=== PATIENT | female | born 1985 | race Caucasian/White ===

== ENCOUNTER → 2016-05-24 | Outpatient (CLI) | payer BC ==
[~2016-05-24] MED LIST: PRENTAB26 PO
[2016-05-24 11:13] LABS: HEMATOCRIT 34.3 % (37-47)
[2016-05-24 13:21] LABS: GTGD 50 Grams
== END | disposition home or self-care (01) ==
LOC: C.LAB1850 09:07
PROVIDERS: ATTEND Obstetrics & Gynecology
DX: O09.899 Supervision of other high risk pregnancies, unspecified trimester (principal)

== ENCOUNTER → 2016-05-24 | Outpatient (CLI) | payer BC ==
[2016-05-24 12:23] LABS: URINE APPEARANCE CLEAR (CLEAR); URINE BILIRUBIN NEG (NEG); URINE COLOR YELLOW; URINE EPITHELIAL CELL AUTO >30 /lpf (0-5); URINE NITRITE NEG (NEG); URINE SPECIFIC GRAVITY 1.021 (1.000-1.030); UROBILINOGEN NEG (NEG)
[2016-05-24 12:28] LABS: MANUAL MICROSCOPIC REQUIRED? NO; REVIEW REQ? YES
== END | disposition home or self-care (01) ==
LOC: C.LABSPEC 11:34
PROVIDERS: ATTEND Obstetrics & Gynecology
DX: Z34.03 Encounter for supervision of normal first pregnancy, third trimester (principal)

== ENCOUNTER → 2016-07-19 | Outpatient (CLI) | payer BC | END | disposition home or self-care (01) | LOC: C.LABSPEC 18:01 | PROVIDERS: ATTEND Obstetrics & Gynecology | DX: Z34.03 Encounter for supervision of normal first pregnancy, third trimester (principal) ==

== ENCOUNTER 2016-08-10 17:06 | Inpatient (IN) | payer BC ==
[~2016-08-10] VITALS: Ht 172.7 cm; Wt 75.0 kg
[2016-08-10] MEDS ORDERED: LACTATED RINGER'S 1000ML 1,000 ML IV PRN (18:23)
[2016-08-10] MEDS ORDERED: LACTATED RINGER'S 1000ML 1,000 ML IV SCH (18:23)
[2016-08-10] MEDS ORDERED: MISOPROSTOLTAB 50 MCG TAB PO ONE (18:30)
[2016-08-10 18:49] LABS: HEMATOCRIT 38.6 % (37-47); MEAN CELL VOLUME 96.7 fL (80-100); MEAN CORPUSCULAR HEMOGLOBIN 33.3 pg (25-34); MEAN CORPUSCULAR HGB CONC 34.5 g/dl (32-36); MEAN PLATELET VOLUME 10.9 fL (7.4-10.4); PLATELET COUNT 195 K/uL (130-400); RED BLOOD COUNT 3.99 M/uL (4.2-5.4); WHITE BLOOD COUNT 15.92 K/uL (4.8-10.8)
[2016-08-10] MEDS ORDERED: PRENTAB26 PO (19:03)
[2016-08-10 19:04] VITALS: BMI 25.1
[2016-08-10 21:09] VITALS: Ht 172.7 cm; Wt 75.0 kg
[2016-08-10] MEDS ORDERED: BUTORPHANOL TARTRATE 1 MG/ML VIAL IV ONE (23:15)
[2016-08-11] MEDS: BUPIVACAINE 0.25% 30 ML VIAL ONE ×2 (00:43→01:29)
[2016-08-11] MEDS ORDERED: EpHEDrine SULFATE INJ 50 MG/ML AMP ONE (00:43)
[2016-08-11] MEDS ORDERED: FENTANYL CITRATE INJ 50 MCG/1 ML 2 ML VIAL ONE (00:43)
[2016-08-11] MEDS ORDERED: FENTANYL 2MCG/ML ROPIV 1.25MG/ML 100ML BAG EPI ONE (00:44)
[2016-08-11] MEDS ORDERED: LACTATED RINGER'S 1000ML 500 ML IV PRN (01:47)
[2016-08-11] MEDS ORDERED: NALOXONE HCL INJ 1 MG in SODIUM CHLORIDE 0.9% 1000ML 1,000 ML IV PRN (01:47)
[2016-08-11] MEDS ORDERED: NALBUPHINE HCL INJ 10 MG/ML AMP IV PRN (02:00)
[2016-08-11] MEDS ORDERED: NALOXONE HCL INJ 0.4 MG/1 ML VIAL/CARP IV PRN (02:00)
[2016-08-11] MEDS ORDERED: DiphenhydrAMINE HCL 50 MG/ML VIAL IV PRN (02:00)
[2016-08-11] MEDS ORDERED: FENTANYL 2MCG/ML ROPIV 1.25MG/ML 100ML BAG EPI PRN (02:00)
[2016-08-11] MEDS ORDERED: EpHEDrine SULFATE INJ 50 MG/ML AMP IV PRN (02:00)
[2016-08-11] MEDS ORDERED: OXYTOCIN 30 UNITS/500ML NSS IV ONE (04:37)
[2016-08-11] MEDS ORDERED: HYDROCORTISONE ACETATE 25 MG SUPP PR PRN (05:30)
[2016-08-11] MEDS ORDERED: OXYCODONE/ACETAMINOPHEN 5-325 TAB PO PRN (05:30)
[2016-08-11] MEDS ORDERED: OXYTOCIN 30 UNITS/500ML NSS IV PRN (05:30)
[2016-08-11] MEDS ORDERED: SUPERCREAM 0.870 % 15GM JAR EXT PRN (05:30)
[2016-08-11] MEDS ORDERED: LANOLIN OINT EXT PRN ×2 (05:30)
[2016-08-11] MEDS ORDERED: ACETAMINOPHEN/CODEINE 300/30MG TAB PO PRN ×2 (05:30)
[2016-08-11] MEDS ORDERED: ACETAMINOPHEN 325 MG TAB PO PRN (05:30)
[2016-08-11] MEDS ORDERED: BENZOCAINE 20% AER SPR 82.5 GM CAN EXT PRN (05:30)
--- NOTE | 2016-08-11 07:10 | DELIVERY SUMMARY ---
DATE OF OPERATION: 08/11/2016 PREOPERATIVE DIAGNOSES: 1. Intrauterine at 39 and 3/7 weeks. 2. Premature rupture of membranes prior to labor. POSTOPERATIVE DIAGNOSES: Same with terminal bradycardia. PROCEDURES: 1. p.o. Cytotec. 2. Epidural anesthesia. 3. Vacuum assisted vaginal delivery over midline episiotomy. 4. Partial third-degree laceration with repair. SURGEON: Dr. Dietz. ANESTHESIA: Epidural. ESTIMATED BLOOD LOSS: 400 mL. DESCRIPTION OF PROCEDURE: The patient presented to labor and delivery grossly ruptured at 39 and 3/7 weeks. Her cervix was then favorable 175, -2. She was given 1 dose of p.o. Cytotec and started to get into a really good contraction pattern. Four hours later she was 390 and -2. She progressed spontaneously and required an epidural for anesthesia and then became complete, complete and +1 station. She labored down for an hour and then began pushing. Within the first 4 pushes there were deep variables with pushing to the 70s that did return. The patient was an excellent pusher and then was able to push the baby down to +4 station. At that point the baby was deceling with pushing to the 70s to 80s with much slower return to the baseline of 120s. The patient was pushing very well, but I advised an outlet vacuum. I advised the patient to the risks and benefits of the procedure verbally and verbal consent was obtained. The vacuum was placed at the end of 1 set of pushing contractions and I had a pop-off. Over the next contraction, vacuum was applied. It was never greater than 50 cm of water pressure and with one push the head was delivered in GRICELDA position. The water had previously been drained prior to the procedure prior to pushing. The vacuum was disengaged and nuchal cord x1 was reduced. The nose and mouth were bulb suctioned and then the anterior shoulder was easily delivered with the rest of the body. There was immediate cry and the baby was vigorous. The nose and mouth were again bulb suctioned. The was placed on the maternal abdomen, for drying and attention and the cord was clamped and cut. Cord blood and segment were obtained. Placenta was delivered spontaneously intact with a 3-vessel cord. A partial third degree laceration was identified, the vast majority of the rectal sphincter was intact, but 2 reinforcing sutures were placed on the anterior and superior edge of the rectal sphincter. A rectal exam was performed. The patient was able to drop the rectal sphincter to show that it was now very approximated. The resultant second-degree perineal laceration was then repaired with 3-0 Vicryl in a normal standard fashion. Hemostasis was obtained with dilute Pitocin and fundal massage. Rectal exam was performed at the end of the procedure, no stitches were noted. Apgars were 8 and 10. Mother and baby doing well at the end of the delivery. I attest to the content of the Intraoperative Record and any orders documented therein. Any exceptio ns are noted below.
--- NOTE | 2016-08-11 07:21 | Anesthesia Procedure Note ---
Anesthesia Epidural Removal Nt Date & Time Aug 11, 2016 at 07:21 Vital Signs Pain Intensity: 0.0 Notes Mental Status: alert / awake / arousable, participated in evaluation Nausea / Vomiting: adequately controlled Pain: adequately controlled Airway Patency, RR, SpO2: stable & adequate BP & HR: stable & adequate Hydration State: stable & adequate Neuraxial Anesthesia: was administered Anesthetic Complications: no major complications apparent, pt satisfied with anesthetic care Epidural: removed without complications, with tip intact
[2016-08-11 08:50] VITALS: BP 120/75; PULSE 96; TEMP 37.2
[2016-08-11] MEDS: IBUPROFEN 600 MG TAB PO PRN ×2 (09:15→16:29)
[2016-08-11] MEDS: DOCUSATE SODIUM 100 MG CAP PO SCH ×2 (09:20→20:31)
[2016-08-11] MEDS: PRENATAL VITAMIN TAB PO SCH (09:20)
[2016-08-11 12:05] VITALS: BP 134/91; PULSE 76; TEMP 36.6
[2016-08-11 16:00] VITALS: BP 126/81; PULSE 70; TEMP 36.7
[2016-08-11 20:30] VITALS: BP 131/79; PULSE 79; TEMP 36.8; O2SAT 97
[2016-08-11 23:30] VITALS: BP 117/70; PULSE 76; TEMP 36.9; O2SAT 96
[2016-08-12 04:20] VITALS: BP 118/78; PULSE 71; TEMP 36.8; O2SAT 97
[2016-08-12] MEDS: IBUPROFEN 600 MG TAB PO PRN ×2 (04:28→14:31)
--- NOTE | 2016-08-12 06:59 | Discharge Instructions ---
Discharge Instructions Date of Service Aug 12, 2016. Admission Reason for Admission: Check Ruptured Membranes Discharge Discharge Diagnosis / Problem: s/p vaginal delivery Discharge Goals Goal(s): Routine recovery after delivery Medications Continue Dispensed Medications: supercream, dermaplast, tucks, lansinoh Activity Recommendations Activity Limitations: as noted below . Instructions / Follow-Up Instructions / Follow-Up ACTIVITY RECOMMENDATIONS: * Gradual return to full activity over the next 2-3 weeks. * No lifting - nothing heavier than baby over the next 2-3 weeks. * Do not engage in vigorous exercise, sexual activity or sports until cleared by your physician. * Do not drive or operate any motorized equipment until cleared by your physician. * You may shower/bathe daily. MEDICATIONS: For discomfort or pain, you may use Acetaminophen (Tylenol), Ibuprofen (Advil), or Naproxen (Aleve) following the package directions. For constipation you may use Colace following the package directions. BREAST CARE: If you are not breast feeding: * Wear a supportive bra 24 hours a day for one to two weeks. * Avoid stimulating your breasts and nipples as much as possible during the first few weeks after delivery. * When taking a shower, have the warm water hit your back, not breasts. * When your breasts feel full, apply ice packs. Usually three to four times a day helps ease the discomfort. * Take a mild pain medication (Tylenol / Motrin) when you are uncomfortable. If breast feeding: * Use breast milk to lubricate nipples. Lansinoh cream may be used for sore nipples. You do not need to remove cream prior to breast feeding. If using a different brand of cream, check the label for directions regarding removal of cream prior to nursing. * Wear a supportive bra. * If having problems with breasts or breast feeding, call a data management consultant or your health care provider. EPISIOTOMY CARE: After delivery, if you have an episiotomy (stitches), the following steps will ease discomfort and aid healing. * For the first 24 hours after delivery, place ice packs next to your episiotomy to help reduce swelling. * After the first 24 hour-period, sitz baths, either portable or in the tub, are suggested. A shower with a shower arm sprayed over the episiotomy may be comforting. * Evy care should be done after each voiding and bowel movement. Squirt warm water from a plastic bottle over the perineum (region of the body between the anus and urinary opening) and pat dry. * Use Dermoplast to ease discomfort. Shake container. [place] directly over the episiotomy. Place a Tucks on a clean sanitary pad next to your episiotomy. SPECIAL CARE INSTRUCTIONS: When you are discharged from the hospital, it is important for you to follow the instructions listed below: * During the first week at home, you should be able to care for yourself and your baby. In addition, the usual light household activities are encouraged. * Limit your activities to the way you feel. Do not try to clean the house or move furniture. Be sensible. * If you actively engage in sports and have done so up until the time of your delivery, you may resume these activities as soon as you feel able. This may take up to one month or even longer. Use good judgment. * Continue to take your vitamins for at least six weeks after the of your baby. * Your diet need not be limited unless you were on a special diet before your delivery. Breast-feeding mothers need around 2500 calories per day and at least 64-80 ounces of fluid per day (8 to 10 glasses). * You should eat foods from the four major food groups. Crash diets or fad diets are to be avoided. Eating lean meats, fresh fruits and vegetables, low-fat dairy products, high fiber foods and a regular exercise program, will help you get back to your pre- weight without putting your health at risk. * Constipation is sometimes a problem after delivery. Take a mild laxative as needed. If breast feeding, Milk of Magnesia is acceptable to use. You may use a suppository or Fleets enema if no episiotomy. * A daily shower or tub bath is suggested. Be sure to thoroughly and gently dry the perineum. * A bloody vaginal discharge will usually continue until around four weeks post . A small amount of bleeding may continue for as long as six weeks. Vaginal discharge changes from the bright red bleeding after delivery to pink then brownish and finally yellowish-pink before becoming white and disappearing. * Bleeding may increase with activity. Your first period may come in 4-8 weeks. If you are breast feeding, your period may be delayed even longer. * Roland (sex) can begin whenever both you and your partner feel comfortable and do not have any form of genital infection. It is recommended that you wait at least six weeks for internal and external healing to occur. If you have questions, please talk to your health care practitioner. A condom should be used to prevent infection and . * Foreplay, gentle intercourse and lubrication is very important the first several times to prevent pain. A water-based lubricant such as K-Y jelly or Astroglide may be used. * If you have RH negative blood and your baby is RH positive, you will receive RHOGAM by injection prior to discharge. The nurse will give you a card to keep with you that has the date and place that you received RHOGAM after delivery. * During your care, you had a Rubella screen done to check for the presence of rubella antibodies in your blood. If your test was negative, you will receive a Rubella vaccine prior to discharge. This vaccine may cause a fever, soreness at the injection site and flu-like symptoms. If these symptoms persist, notify your health care practitioner. is not advised for one month after a Rubella vaccine. * Verbalizes understanding of car seat law as reviewed with patient nursing. * Car Seat hand-out given and reviewed with patient by nursing. * Shaken baby information reviewed with patient by nursing. Call you doctor if: * Heavy bleeding (saturating several pads an hour) or passing clots the size of your fist. * A fever >101 degrees F (38.3 degrees C) on two occasions four hours apart and /or chills. * Unusual pain in the pelvic or vaginal areas. * "Baby Blues" lasting longer than two weeks. If you have any questions or concerns, call your health care practitioner at . FOLLOW UP VISIT: * Please call the office at to schedule a 6 week examination. It is important you keep this appointment. It is important for you to make arrangements for either yearly or twice yearly check-ups thereafter. Current Hospital Diet Patient's current hospital diet: Regular OB Diet Discharge Diet Recommended Diet: Regular Diet Pending Studies Studies pending at discharge: no Medical Emergencies . Who to Call and When: Medical Emergencies: If at any time you feel your situation is an emergency, please call 911 immediately. . Non-Emergent Contact Non-Emergency issues call your: Nurse Licensed Practical Call Non-Emergent contact if: you have a fever, temperature is above 101 . . "Provider Documentation" section prepared by Sommer Talamantes. . VTE Core Measure Inpt VTE Proph given/why not?: Treatment not indicated
--- NOTE | 2016-08-12 07:09 | Progress Note ---
Subjective Aug 12, 2016. Subjective conversation w/ patient, physical exam, lab review Ambulation: ambulating normally Voiding: no voiding problems Passing Gas: Yes Diet Tolerance: Regular Diet Lochia: Moderate Feeding Type: Breast Feeding Pain: improves with meds Comment: Patient was seen at the bedside. No acute event overnight. Review of Systems Constitutional: No fever Respiratory: No shortness of breath Cardiac: No chest pain Breast: No breast lump Abdomen: No nausea, No pain, No vomiting Female : No dysuria, No urinary frequency Denies headache Objective Vital Signs Date Time Temp Pulse Resp B/P Pulse Ox O2 Delivery O2 Flow Rate FiO2 08/12/16 04:20 36.8 71 16 118/78 97 Room Air 08/11/16 23:30 Room Air 08/11/16 23:30 36.9 76 18 117/70 96 Room Air 08/11/16 20:30 36.8 79 16 131/79 97 Room Air 08/11/16 16:00 36.7 70 18 126/81 Room Air 08/11/16 12:05 36.6 76 20 134/91 08/11/16 08:50 37.2 96 22 120/75 Physical Exam General Appearance: WELL-APPEARING, WD/WN, NO APPARENT DISTRESS Respiratory/Chest: chest non-tender, lungs clear, normal breath sounds Cardiovascular: regular rate, rhythm Abdomen: normal bowel sounds, non tender, soft Fundus: Firm, Relation to Umbilicus (3cm below) Extremities: non-tender, no pedal edema, no calf tenderness Laboratory Results Last 24 Hours Test 08/12/16 04:44 Medications Current Inpatient Medications Medications (Trade) Dose Ordered Sig/Lolis Route Start Time Stop Time Status Last Admin Dose Admin Oxytocin (Pitocin IV) 30 units UD PRN IV 08/11/16 05:30 09/10/16 05:29 Benzocaine (Dermoplast Aero Spr) 1 appln PRN PRN EXT 08/11/16 05:30 09/10/16 05:29 08/11/16 09:15 1 APPLN Cocaine HCl (Supercream 0.870% Cr) BID PRN EXT 08/11/16 05:30 08/25/16 05:29 Hydrocortisone Acetate (Anusol Hc Supp) 25 mg BID PRN ME 08/11/16 05:30 09/10/16 05:29 Lanolin (Lanolin Oint) PRN PRN EXT 08/11/16 05:30 09/10/16 05:29 Prenat Multivit/ Film Developing Machine Operator/Iron/Folic Ac ( Vitamin Tab) 1 tab DAILY PO 08/11/16 08:00 09/10/16 07:59 08/11/16 09:20 1 TAB Ibuprofen (Motrin Tab) 600 mg Q4H PRN PO 08/11/16 05:30 09/10/16 05:29 08/12/16 04:28 600 MG Acetaminophen (Tylenol Tab) 650 mg Q6H PRN PO 08/11/16 05:30 09/10/16 05:29 Acetaminophen/ Codeine Phosphate (Tylenol w/ Codeine #3 Tab) 1 tab Q4H PRN PO 08/11/16 05:30 09/10/16 05:29 Acetaminophen/ Codeine Phosphate (Tylenol w/ Codeine #3 Tab) 2 tab Q4H PRN PO 08/11/16 05:30 09/10/16 05:29 Docusate Sodium (coLACE CAP) 100 mg BID PO 08/11/16 08:00 09/10/16 07:59 08/11/16 20:31 100 MG Diphtheria/ Pertussis/Tetanus Vacc (Adacel Inj) 0.5 ml ONCE ONCE IM. 08/12/16 09:00 08/12/16 09:01 Assessment and Plan Post- Day#: 1 Continue Routine Care: A/P: This is a 31 y/o female, , s/p normal vaginal delivery. She is ambulating and clinically stable to discharge. - Vital signs are reviewed and WNL (Tmax 37.2 ) - Last Hgb 13.3 - Blood type A-, GBS neg, Rubella Immune - No signs of depression. - Routine care - Discussed resting, feeding, pain control, mastitis, control, follow up in 6 weeks and reasons to call sooner, if necessary. - Continue with pain medication as needed, and continue vitamins. - Encourage breast feeding and educate about breast feeding - Patient understands and keen for home. - Plan to discharge home Resident Physician Supervision Note: I interviewed and examined the patient. Discussed with Dr. Talamantes and agree with findings and plan as documented in the note. Any exceptions or clarifications are listed here: [None] Documented By: Marcus Sherman
[2016-08-12 07:18] LABS: HEMATOCRIT 34.3 % (37-47)
[2016-08-12 08:00] VITALS: BP 119/83; PULSE 63; TEMP 36.6
[2016-08-12] MEDS: DOCUSATE SODIUM 100 MG CAP PO SCH (08:12)
[2016-08-12] MEDS: PRENATAL VITAMIN TAB PO SCH (08:12)
[2016-08-12] MEDS ORDERED: DIPHTHERIA/TETANUS/PERTUSSIS 0.5 ML SYR/VIAL IM. ONE (09:00)
[2016-08-12 16:15] VITALS: BP 129/83; PULSE 69; TEMP 36.9; O2SAT 97
[2016-08-12 20:00] VITALS: BP_DIAS 83; PULSE 69; TEMP 36.9
--- NOTE | 2016-08-15 15:33 | DISCHARGE SUMMARY ---
ADMISSION DIAGNOSIS: Intrauterine at 39 and 2/7th weeks with SHROM. DISCHARGE DIAGNOSES: 1. Same. 2. Deep variable decelerations with pushing with flow return to baseline at +4 station. PROCEDURES: 1. Outlet vacuum assisted vaginal delivery. HISTORY OF PRESENT ILLNESS: The patient is a 31-year-old white female 2, para 0 with an intrauterine at 39 and 2/7th weeks who presents with leaking of fluid at 4:00 p.m. No bleeding, rare contractions, positive movement was seen in the office yesterday; closed, 75% and firm. is uncomplicated, conceived on Femara. 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 No abnormal Paps or STDs. ALLERGIES: None. MEDICATIONS: vitamins. PAST MEDICAL HISTORY: Healthy with history of varicella. PAST SURGICAL HISTORY: Oral surgery. SOCIAL HISTORY: No tobacco, alcohol or drugs. Lives with her spouse and pets. PHYSICAL EXAMINATION: VITAL SIGNS: Afebrile. Vital signs stable. ABDOMEN: Soft, gravid and nontender. Cervix 1 cm dilated, 75% effaced, -2 station, mid and moderate. Sterile speculum exam--+fern/nitrazine/pool. Tocodynamometer rare, external monitor 140s with moderate variability, accels to 160s and no decels. ASSESSMENT AND PLAN: Intrauterine at term with premature rupture of membranes. Cervix is unfavorable. HOSPITAL COURSE: The patient underwent 1 dose of p.o. Cytotec which worked very well for her. Four hours later, she was checked, she was 3.5 cm dilated, 90% effaced, -2 station. She was ned every 2-4 minutes. heart tones were in the 120s. Moderate variability, small accels, no decels and positive scalp stim. She took some Stadol and then eventually took an epidural anesthetic and progressed spontaneously to complete-complete and +1 station. She labored down for an hour and then began pushing. The patient pushed very well to get the baby to +4 station, but then the baby started to have deep variables with pushing with slow return to baseline. When the patient got to +4 station, I recommended vacuum assistance at the outlet, she was agreeable. The bladder had been drained prior to the procedure. The vacuum was applied over the third push of 1 contraction and popped off and then it was reapplied over the next contraction to deliver the vertex, over a midline episiotomy. The nose and mouth were suctioned, nuchal cord x1 was reduced and rest of the infant was then delivered without difficulty and was vigorous. Placenta delivered spontaneously intact with a 3-vessel cord. A partial third degree laceration was identified and repaired. Estimated blood loss 400 mL. Apgars 8 and 10. Mother and baby doing well at the end of the delivery. The patient's course was uncomplicated. She tolerated a regular diet, ambulated without difficulty, had good pain control and voided without difficulty. She was discharged home on day #1 with routine followup in the office. MADELEINE
== END 2016-08-12 20:00 | disposition home or self-care (01) | DRG 775 ==
LOC: C.OPB 17:06 → C.LD 17:06 → C.OPB 18:25 → C.OBG 08-11 09:53
PROVIDERS: ADMIT Obstetrics & Gynecology; ATTEND Obstetrics & Gynecology
PROC: 0W8NXZZ Division of Female Perineum, External Approach (ICD-10-PCS; principal; 2016-08-11)
PROC: 0DQR0ZZ Repair Anal Sphincter, Open Approach (ICD-10-PCS; principal; 2016-08-11)
PROC: 10D07Z6 Extraction of Products of Conception, Vacuum, Via Natural or Artificial Opening (ICD-10-PCS; principal; 2016-08-11)
DX: O42.02 Full-term premature rupture of membranes, onset of labor within 24 hours of rupture (principal); O70.21 Third degree perineal laceration during delivery, IIIa; O76 Abnormality in fetal heart rate and rhythm complicating labor and delivery; O69.81X0 Labor and delivery complicated by cord around neck, without compression, not applicable or unspecified; Z3A.39 39 weeks gestation of pregnancy; Z37.0 Single live birth

== ENCOUNTER → 2016-09-21 | Outpatient (CLI) | payer BC | END | disposition home or self-care (01) | LOC: C.PAPS 16:19 | PROVIDERS: ATTEND Obstetrics & Gynecology | DX: Z01.419 Encounter for gynecological examination (general) (routine) without abnormal findings (principal) ==

== ENCOUNTER → 2016-12-01 | Outpatient (CLI) | payer BC ==
[2016-12-01 08:28] LABS: PREG INTERNAL NEGATIVE QC NEG CLEAR BACKGROUND; PREG INTERNAL POSITIVE QC POS CONTROL LINE
[2016-12-05 01:31] LABS: CHLAMYDIA TRACH RNA*** NOT DETECTED (NOT DETECTED); GC (NEIS GONORRHOEAE)RNA** NOT DETECTED (NOT DETECTED)
== END | disposition home or self-care (01) ==
LOC: C.LAB1850 07:44
PROVIDERS: ATTEND Obstetrics & Gynecology
DX: N91.2 Amenorrhea, unspecified (principal)